=== PATIENT | male | born 1960 | race Caucasian/White ===

== ENCOUNTER 2019-05-06 09:23 | Inpatient (IN) ==
--- NOTE | 2019-05-03 15:23 | Anesthesiology Consultation ---
Date of Service May 03, 2019 Assessment & Plan (1) Encounter for pre-operative examination: Patient not seen at PAT and no RN phone interview at time of chart review. Information obtained from available records. Chart Review Chart Review: Acceptable Risk for Surgery (pending evaluation AM DOS) and Patient NOT seen in Pre Admission Testing History Surgery Operation Date: 05/06/19 11:35 Proposed Procedures p Robotic Left Video Assisted Thoracoscopy with Left Upper Lobectomy and Mediastinal Lymphadenectomy - Wild Hess MD, FACS Height/Weight Height: 5 ft 6.5 in Weight: 83.007 kg Allergies Allergy/AdvReac Type Severity Reaction Status Date / Time No Known Allergies Allergy Verified 05/02/19 15:39 Medications Home Medications Medication Instructions Recorded Confirmed Last Taken albuterol sulfate 90 mcg/actuation 1 puffs INH QID 04/28/19 04/28/19 Unknown aerosol inhaler atorvastatin 10 mg tablet 10 mg PO DAILY 04/28/19 04/28/19 Unknown budesonide-formoterol HFA 160 2 puffs INH BID 04/28/19 04/28/19 Unknown mcg-4.5 mcg/actuation aerosol inhaler hydrocodone 5 mg-acetaminophen 325 1 tab PO Q6H PRN 04/28/19 04/28/19 Unknown mg tablet tiotropium bromide 2.5 2 puffs INH DAILY 04/28/19 04/28/19 Unknown mcg/actuation mist for inhalation Past Medical History Medical History Asthma Emphysema lung Hyperlipemia Left upper lobe pulmonary nodule Primary adenocarcinoma of upper lobe of left lung Past Surgical History Surgical History H/O cervical spine surgery C4-C5 fusion Hx of neck surgery "tumor behind throat" Social History Smoking Status: Current every day smoker Hx Alcohol Use: Yes Hx Substance Use: No Testing Laboratory Results 03/31/19 WBC 8.1 H/H 17.3/49.6 PLATELETS 128 04/20/19 GLUCOSE 71 Electrocardiogram Date: 05/02/19 Findings: + NSR @ (71) Other Testing PET CT Chest: 04/20/19: intensely hypermetabolic 2.1 x 1.8cm VA nodule, stable to slightly increased in size compared to 1.6 x 1.6 cm previously-compatible with biopsy-proven malignancy. There is a hypermetabolic right hilar lymph node. Bibasilar dependent subsegmental atelectasis. No new pulmonary nodule or parenchymal opacity.
[~2019-05-06 09:23] MED LIST: ACETAMINOPHEN 1000 MG/100 ML IV IV ONE; LR 15ML/HR IV SCH
--- NOTE | 2019-05-06 09:50 | History & Physical Bridge Note ---
Date of Service May 06, 2019 History & Physical Bridge Note I have examined the patient, reviewed the History & Physical and in the interval since the performance of the History & Physical I have noted the following changes of clinical significance: no changes noted
[2019-05-06] MEDS ORDERED: MIDAZOLAM HCL 1 MG/ML 2ML VIAL ONE (09:53)
[2019-05-06] MEDS ORDERED: fentaNYL citrate 100 MCG/2 ML VIAL ONE ×4 (09:53→14:07)
[2019-05-06] MEDS ORDERED: PROPOFOL IV EMULSION 10 MG/ML 20 ML VIAL IV ONE (09:54)
[2019-05-06] MEDS ORDERED: ROCURONIUM BROMIDE 10 MG/ML 5 ML VIAL ONE ×4 (09:54→13:57)
[2019-05-06] MEDS ORDERED: LIDOCAINE HCL 2% 2 ML VIAL/AMP(20MG/ML) INFIL ONE (09:54)
[2019-05-06] MEDS ORDERED: DEXAMETHASONE SOD INJ 4 MG/ML VIAL ONE (09:55)
[2019-05-06] MEDS ORDERED: ONDANSETRON INJ 2 MG/ML 2 ML VIAL ONE (09:55)
[2019-05-06] MEDS ORDERED: BUPIVACAINE LIPOSOME 1.3% 266 MG/20 ML VIAL ONE (10:03)
[2019-05-06] MEDS ORDERED: BUPIVACAINE 0.5 % 5 MG/1 ML MPF 30ML VIAL ONE (10:03)
[2019-05-06] MEDS ORDERED: SODIUM CHLORIDE 0.9% PF 50 ML VIAL ONE (10:03)
[2019-05-06] MEDS ORDERED: ATROPINE SULFATE 0.1 MG/ML 10ML SYR IV PRN (10:34)
[2019-05-06] MEDS ORDERED: LABETALOL HCL IV 5 MG/ML 20ML IV PRN (10:34)
[2019-05-06] MEDS ORDERED: PHENYLEPHRINE 100MCG/ML 5ML SYR IV PRN (10:34)
[2019-05-06] MEDS ORDERED: MEPERIDINE HCL 25 MG/ML CARP IV PRN (10:34)
[2019-05-06] MEDS ORDERED: ePHEDrine sulfate 50 MG/ML AMP IV PRN (10:34)
[2019-05-06] MEDS ORDERED: ONDANSETRON INJ 2 MG/ML 2 ML VIAL IV PRN ×2 (10:34→16:10)
[2019-05-06] MEDS ORDERED: CEFAZOLIN 2000MG 2,000 MG/15 ML SYR IV ONE (11:59)
[2019-05-06] MEDS ORDERED: CEFAZOLIN 250 MG/ML 1 GM VIAL ONE (12:22)
[2019-05-06] MEDS ORDERED: PHENYLEPHRINE HCL 10 MG/ML VIAL ONE (12:22)
[2019-05-06] MEDS ORDERED: PHENYLEPHRINE 100MCG/ML 5ML SYR ONE (12:22)
[2019-05-06] MEDS ORDERED: GLYCOPYRROLATE 0.2 MG/ML VIAL ONE (13:57)
[2019-05-06] MEDS ORDERED: NEOSTIGMINE METHYLSULFATE 5 MG/5 ML SYR ONE (13:57)
[2019-05-06] MEDS ORDERED: ALBUTEROL HFA INHALER 8.5 GM ONE (14:04)
[2019-05-06] MEDS ORDERED: SURGICEL FIBRILLAR HEMOSTAT 1 X 2IN TOP ONE (14:09)
--- NOTE | 2019-05-06 14:21 | Operative Report ---
PG Post Operative Report Pre & Post Diagnosis Operation Date: 05/06/19 11:40 <No data on this case meets the specified criteria> I identified the patient and participated in the time-out.: Yes Procedure Operation Date: 05/06/19 11:40 <No data on this case meets the specified criteria> Surgeon Wild Hess MD, FACS I attest to the content of the Intraoperative Record and any orders documented therein. Any exceptions are noted below.
--- NOTE | 2019-05-06 14:27 | Operative Report ---
PG Post Operative Report Pre & Post Diagnosis Operation Date: 05/06/19 11:40 Pre-Op Diagnosis: Left Upper Lobe Non-small Cell Carcinoma Post-Op Diagnosis: Left Upper Lobe Non-small Cell Carcinoma I identified the patient and participated in the time-out.: Yes Procedure Operation Date: 05/06/19 11:40 Actual Procedures p Robotic Left Video Assisted Thoracoscopy with Left Upper Lobectomy and Mediastinal Lymphadenectomy(Left) - Wild Hess MD, FACS Surgeon Wild Hess MD, FACS [employer] (Mr. Benites was present for the entire case including incisions of the). Estimated Blood Loss 200 Findings Consistent with Post-Op Diagnosis Specimens Left upper lobe. Multiple lymph nodes from our mediastinal lymphadenectomy. Drains 24 Italian chest tube Anesthesia Type General Complications none Disposition Accompanied Patient To Recovery: Yes Disposition: Recovery Room Description of Procedure Patient was brought to the operating room and laid in the supine position. General anesthesia was induced and endotracheal intubation was performed with a double-lumen tube. After appropriate monitoring lines and catheters been placed, the patient was turned into the right lateral decubitus position and his left chest was prepped and draped in the usual sterile fashion. After an appropriate timeout had been called and prophylactic antibiotics given an 8 mm port was placed just a bit anterior to the midaxillary line in the seventh interspace. We could see there were no adhesions. The fissures are well- developed. This was converted to a 12 mm camera port and we put 8 mm ports 10 cm anterior and posterior to this incision. 5 mm port was placed in the paraspinal area for retraction. A 12 mm port was placed in the nurses assistant port just above the diaphragm anteriorly. A total of 20 cc of Exparel rel which contain 266 mg was mixed with 30 cc of 0.5% ropivacaine and 250 cc of normal saline. This was used to inject each of the 5 port sites and then we also used to perform an intercostal block from the second to the 12th rib by filling the intercostal spaces under direct vision. We began our dissection by taking down the infrapulmonary ligament. There was a very small level 9 lymph node. We then took a level 8 level 10 dissected out the bifurcation and got to the level 7. I came around anteriorly and took a level 5 and 6. We identified the arteries and veins posteriorly. We then flipped the lung over and came down into the fissure which was well-developed. We dissected out the artery and then completed the fissure posteriorly with an Endo MONI stapler. Coming anterior we then completed the fissure by simply the tissue with the cautery. We were able to identify the superior pulmonary vein and lingular vein nicely. An Endo MONI stapler was used to take the more distal arteries including the lingual artery from the main left pulmonary artery. Coming more posterior there was another branch which was taken to the posterior portion of the upper lobe. We then freed up all the pleura anteriorly dissecting out several level 10 nodes as well as level 11 nodes. The Endo MONI stapler was used to divide the veins. This identified the apical anterior branch nicely so this was divided with an Endo MONI stapler. We then used the Endo MONI stapler to fire across the bronchus. We had left a little bit too much bronchus so we fired this again and sent this 1 portion off to the lab for frozen section and the margin was clear of any evidence of malignant disease. We really had very little in the way of an air leak. We had some oozing from the hilum and from the port sites but otherwise he did very very well. 24 Italian chest tube was placed to the anterior port site direct towards the apex and held place heavy silk suture. We had delivered the the lobe out using an Endobag through the assistance port which had to be opened a bit and we closed this fascia using 0 Vicryl in a running tenderness fashion. 4-0 Monocryl was used in a running subcuticular fashion approximate the wound edges of all the incisions. The patient tolerated quite well was extubated in the room. Transported to the postanesthesia care unit in stable condition. I attest to the content of the Intraoperative Record and any orders documented therein. Any exceptions are noted below.
[2019-05-06] MEDS ORDERED: METOCLOPRAMIDE HCL INJ 5 MG/ML 2 ML VIAL IV ONE (14:45)
[2019-05-06] MEDS: fentaNYL citrate 100 MCG/2 ML VIAL IV PRN ×4 (14:55→15:10)
[2019-05-06] MEDS: HYDROmorphone INJ 1 MG/ML SYRINGE IV PRN ×3 (15:15→15:25)
--- NOTE | 2019-05-06 15:16 | XRay Report ---
XR chest 1V portable CLINICAL HISTORY: [facility] COMPARISON STUDY: PET/CT April 20, 2019. FINDINGS: Left chest tube is in place. There is a trace left pneumothorax. Slight asymmetric hazy opa cification of the left hemithorax is noted. Right lung is clear. There is no evidence for pulmonary e reinier. Mild left reflects volume loss is noted as expected. IMPRESSION: Left chest tube in place. Trace left pneumothorax. ACT 112: Negative or not required by law. Electronically signed by: Alvaro Jeffries M.D. 05/06/2019 3:14 PM
--- NOTE | 2019-05-06 15:37 | Anesthesiology Progress Note ---
Date of Service May 06, 2019 Anesthesia Post Procedure Vital Signs Vital Signs: Temp Pulse Pulse Resp BP BP Pulse Ox 05/06/19 15:20 92 H 16 98/70 L 92 05/06/19 15:10 89 16 110/80 97 05/06/19 15:00 84 18 133/91 99 05/06/19 14:50 36.3 C L 86 18 123/84 99 05/06/19 09:56 36.6 C 80 18 128/102 H 97 Pain Intensity Left Chest: Pain Intensity: 8 Transfer of Care Handoff Completed per policy Notes Mental Status: alert / awake / arousable and participated in evaluation Nausea / Vomiting: adequately controlled Pain: adequately controlled Airway Patency, RR, SpO2: stable & adequate BP & HR: stable & adequate Hydration State: stable & adequate Anesthetic Complications: no major complications apparent
[2019-05-06] MEDS ORDERED: ALBUTEROL HFA 8 GM INHALER INH PRN (16:10)
[2019-05-06] MEDS: D5W AND 1/2NSS 1,000 ML IV SCH (17:14)
[2019-05-06] MEDS: OXYCODONE HCL IR 5 MG TAB (IMMEDIATE RELEASE) PO PRN (19:37)
[2019-05-06] MEDS: DOCUSATE SODIUM 100 MG CAP PO SCH (20:31)
[2019-05-06] MEDS: ATORVASTATIN 20 MG TAB PO SCH (20:31)
[2019-05-06] MEDS: METOCLOPRAMIDE HCL INJ 5 MG/ML 2 ML VIAL IV SCH (22:22)
[2019-05-06] MEDS: ACETAMINOPHEN 1,000 MG/100 ML VIAL IV SCH (22:23)
[2019-05-06] MEDS: MoRPHine SULFATE 2 MG/ML CARP IV PRN (23:43)
[2019-05-07] MEDS: MoRPHine SULFATE 2 MG/ML CARP IV PRN ×4 (03:06→20:41)
[2019-05-07] MEDS: D5W AND 1/2NSS 1,000 ML IV SCH (03:10)
[2019-05-07] MEDS: ACETAMINOPHEN 1,000 MG/100 ML VIAL IV SCH ×2 (05:41→14:11)
[2019-05-07 06:15] LABS: Basophils # (auto) 0.01 K/uL (0-0.2); Basophils % (auto) 0.1 %; Hematocrit (blood only) 43.1 % (42-52); Hemoglobin 14.5 g/dL (14.0-18.0); Immature Granulocytes # (auto) 0.04 K/uL (0.00-0.02); Immature Granulocytes % (auto) 0.3 %; Lymphocytes # (auto) 2.06 K/uL (1.2-3.4); Lymphocytes % (auto) 13.3 %; Mean Corpuscular Hemoglobin 33.9 pg (25-34); Mean Corpuscular Volume 100.7 fL (80-100); Mean Platelet Volume 10.1 fL (7.4-10.4); Monocytes # (auto) 1.15 K/uL (0.11-0.59); Monocytes % (auto) 7.4 %; Neutrophils % (auto) 78.9 %; Platelet Count 126 K/uL (130-400); RDW Coefficient of Variation 13.1 % (11.5-14.5); RDW Standard Deviation 47.7 fL (36.4-46.3); Red Blood Count 4.28 M/uL (4.7-6.1); White Blood Count 15.46 K/uL (4.8-10.8)
[2019-05-07 06:18] LABS: Mean Corpuscular Hgb Conc 33.6 g/dL (32-36)
[2019-05-07] MEDS: METOCLOPRAMIDE HCL INJ 5 MG/ML 2 ML VIAL IV SCH (06:24)
[2019-05-07 06:31] LABS: BUN Creatinine Ratio 14.8 (10-20); Calcium 8.2 mg/dl (8.5-10.1); Creatinine Clr Calc Pharmacy 72.3 ml/min; Est GFR (African American) 84.7; Est GFR (Non-African American) 73.1; Potassium 4.1 mmol/L (3.5-5.1)
[2019-05-07] MEDS: OXYCODONE HCL IR 5 MG TAB (IMMEDIATE RELEASE) PO PRN ×3 (07:35→23:52)
--- NOTE | 2019-05-07 07:54 | XRay Report ---
XR chest 1V portable HISTORY: Postop. COMPARISON: Chest 05/06/2019. FINDINGS: Tiny left apical pneumothorax and a left chest tube remain unchanged. Right basilar linear densities favor subsegmental atelectasis. The heart remains mildly enlarged. No pleural effusions. IMPRESSION: No change in the tiny left pneumothorax and left-sided chest tube. ACT 112: Negative or not required by law. Electronically signed by: Juan Manuel Liriano M.D. 05/07/2019 7:53 AM
[2019-05-07] MEDS ORDERED: NON-FORMULARY MEDICATION (Fluticasone-Umeclidin-Vilanter [Trelegy Ellipta] 1 PUFFS) INH SCH (09:00)
[2019-05-07] MEDS: DOCUSATE SODIUM 100 MG CAP PO SCH ×2 (09:52→20:41)
[2019-05-07] MEDS: FLUTICASONE FUROATE 100MCG 14 PUFFS/INHALER INH SCH (09:54)
[2019-05-07] MEDS: UMECLIDINIUM/VILANTEROL 62.5/25MCG 7 PUFFS/INHALER INH SCH (09:54)
--- NOTE | 2019-05-07 13:32 | Progress Note ---
DATE: 05/07/2019 Mr. Diaz was seen today. He looks great. He is on 2 liters 93% saturation. He is complaining of some pain with the chest tube, but he is not breathing as well as I would like. He does have good breath sounds on both sides, however. Vital signs are stable. I see no air leak. He has drained about 270 mL, but this is serous. His hemoglobin today was 14.5. White count is 15,460. His chest x-ray, I thought looked very good. His lung is fully expanded. He has no pleural effusions. We will probably remove his chest tube and let him go home tomorrow if he has no leak. He is 1 day status post lobectomy for a nonsmall cell lung carcinoma. He looks really good.
[2019-05-07] MEDS: ATORVASTATIN 20 MG TAB PO SCH (20:41)
[2019-05-08] MEDS: OXYCODONE HCL IR 5 MG TAB (IMMEDIATE RELEASE) PO PRN ×3 (06:33→19:38)
[2019-05-08] MEDS: UMECLIDINIUM/VILANTEROL 62.5/25MCG 7 PUFFS/INHALER INH SCH (08:46)
[2019-05-08] MEDS: FLUTICASONE FUROATE 100MCG 14 PUFFS/INHALER INH SCH (08:47)
[2019-05-08] MEDS: DOCUSATE SODIUM 100 MG CAP PO SCH ×2 (08:47→20:12)
--- NOTE | 2019-05-08 12:52 | Progress Note ---
DATE: 05/08/2019 Mr. Diaz was seen today. He is better than he was yesterday. He is coughing better. He has a very tiny intermittent air leak on suction. No longer has pain on suction. His x-ray yesterday looked quite good. He put out 120 mL of serous fluid from his chest tube. I am quite pleased with him, but I think it to keep him 1 more day. He is still on a small amount of oxygen and we are going to get him up and really work on moving him today to see if we can get him off of this before discharging him tomorrow. ASSESSMENT AND PLAN: Postoperative day #2 status post robot-assisted thoracoscopic left upper lobectomy for nonsmall cell lung carcinoma.
[2019-05-08] MEDS: ATORVASTATIN 20 MG TAB PO SCH (20:12)
[2019-05-09] MEDS: MoRPHine SULFATE 2 MG/ML CARP IV PRN (00:08)
[2019-05-09] MEDS: OXYCODONE HCL IR 5 MG TAB (IMMEDIATE RELEASE) PO PRN (06:37)
--- NOTE | 2019-05-09 07:38 | XRay Report ---
SINGLE VIEW CHEST CLINICAL HISTORY: Status post left upper lobe resection. FINDINGS: An AP, portable, upright chest radiograph is compared to study dated 05/07/2019 and correlate d with chest CT dated 03/18/2019. The examination is degraded by portable technique and patient rotat ion. A chest tube at the left apex is unchanged in position. The heart is enlarged. The pulmonary vas culature is noncongested. Emphysema and chronic interstitial thickening are similar to previous. Agai n seen is postoperative change consistent with left upper lobe resection. There is bibasilar atelecta sis and trace pleural fluid is noted on the left. There is trace residual left apical pneumothorax. T he skeletal structures are osteopenic. The bony thorax is grossly intact. Fusion hardware is noted in the lower cervical spine. IMPRESSION: 1. A left apical chest tube is unchanged in position. A trace left apical pneumothorax persists. 2. Cardiomegaly, emphysema, and postoperative change from left upper lobe resection. ACT 112: Negative or not required by law. Electronically signed by: Von Krause M.D. 05/09/2019 7:37 AM
--- NOTE | 2019-05-09 09:37 | XRay Report ---
XR chest 1V portable CLINICAL HISTORY: chest tube removal COMPARISON STUDY: Chest radiograph May 09, 2019 at 7:02 AM. FINDINGS: Chest tube has been removed. A trace left apical pneumothorax is unchanged. There is mild l eft paramediastinal opacity. Slight asymmetric hazy left lung opacification is noted. Trace left pleu ral effusion is noted. There may be a trace right pleural effusion with right basilar atelectasis. IMPRESSION: No significant change in trace left apical pneumothorax following chest tube removal. ACT 112: Negative or not required by law. Electronically signed by: Alvaro Jeffries M.D. 05/09/2019 9:36 AM
[2019-05-09] MEDS: DOCUSATE SODIUM 100 MG CAP PO SCH (10:49)
[2019-05-09] MEDS: FLUTICASONE FUROATE 100MCG 14 PUFFS/INHALER INH SCH (10:49)
[2019-05-09] MEDS: UMECLIDINIUM/VILANTEROL 62.5/25MCG 7 PUFFS/INHALER INH SCH (10:49)
--- NOTE | 2019-05-09 12:13 | Discharge Summary ---
DISCHARGE DIAGNOSES: 1. Adenocarcinoma of the left upper lobe. 2. Status post robot-assisted thoracoscopic left upper lobectomy with mediastinal lymphadenectomy. 3. Active cigarette smoking. 4. Chronic obstructive pulmonary disease. HOSPITAL COURSE: Mr. Diaz is a 58-year-old smoker who was found to have a nonsmall cell lung carcinoma left upper lobe which favors an adenocarcinoma. He was worked up by [facility] and referred to me. On 05/06/2019 the patient underwent an uncomplicated robot-assisted thoracoscopic left upper lobectomy and mediastinal lymphadenectomy. He did quite well except he was on some oxygen postop and had a tiny air leak after surgery. This was almost completely resolved on postop day #2. On postop day 3, we removed his chest tube. His x-ray looked good. We did a 2-step and he did not qualify for home O2, dropping down to 89% when he ambulated in the hallway. His incisions were clean and his x-ray looked quite good. He was tolerating a regular diet. His pain was very well controlled and we did not send him home on pain medicine as he does have some oxycodone at home. I will see him back in the office in a week to go over his pathology. I was very pleased with how well he did after the surgery.
--- NOTE | 2019-05-09 14:33 | Electrocardiogram Report ---
Test Reason : Blood Pressure : / mmHG Vent. Rate : 097 BPM Atrial Rate : 097 BPM P-R Int : 158 ms QRS Dur : 092 ms QT Int : 334 ms P-R-T Axes : 060 024 -24 degrees QTc Int : 424 ms Normal sinus rhythm RSR' or QR pattern in V1 suggests right ventricular conduction delay T wave abnormality, consider inferior ischemia Abnormal ECG When compared with ECG of 02-MAY-2019 14:39, No significant change was found Confirmed by Justin Calderon ([id number]) on 05/09/2019 2:32:26 PM Referred By: Faizan Lynn Confirmed By:Justin Calderon
== END 2019-05-09 14:51 | disposition home or self-care (01) | DRG 165 ==
LOC: ASU 09:23 → 3W 14:34